=== PATIENT | female | born 1950 | race Caucasian/White ===

== ENCOUNTER 2016-10-28 18:21 | Emergency (ER) | payer OTHER ==
--- NOTE | ~2016-10-28 | CT2 ---
[facility] A Service [facility] RADIOLOGY TEXT RESULTS PATIENT: BETH FLOYD LOCATION: [facility] : 54 UNIT #: [id number] AGE: [address]: Cassidy Sandoval MD SEX: F ORDER DR: [id number] [id number] [facility]. [place], [place] [address] [id number] MR#: [id number] Acc #: [id number] NAME: BETH FLOYD : 1950 SEX: F STUDY DATE/TIME: 10/28/2016 20:01 UNIT: [facility] ROOM: STUDY DESCRIPTION: CT Abd and Pelv W Cont Attending Physician: Cassidy Sandoval M.D. Ordering Physician: Cassidy Sandoval M.D. Primary Care Physician: Negrito Mims M.D. MEDICAL IMAGING REPORT This report is preliminary unless electronic signature is present EXAM CT abdomen and pelvis 10/28/2016 INDICATION Generalized abdominal pain and lower abdominal pain. Nausea and diarrhea for [address] of the abdomen and pelvis with p.o. and IV contrast (100 mL Isovue-370 IV contrast). Coronal and sagittal reconstructions were obtained. This CT exam was performed with one or more of the following radiation dose reduction techniques: automatic exposure control, adjustment of mA and/or kV according to patient size, and iterative reconstruction. COMPARISON None available. FINDINGS There is some mucus plugging in the right lower lobe bronchi. There is some linear atelectasis in the right lung base. The liver enhances normally. Multiple gallstones are identified in the gallbladder. The pancreas, spleen, adrenal glands, and kidneys are within normal limits. There are a few small periportal lymph nodes, however, they are not considered to be pathologically enlarged. No small bowel obstruction. There is fluid throughout the colon consistent with the history of a gastroenteritis. The appendix is not clearly identified and it may be surgically absent. There is no inflammatory changes adjacent to the cecum. The abdominal aorta is normal caliber, however, there is diffuse atherosclerotic disease. [facility] A Service of [facility] RADIOLOGY TEXT RESULTS PATIENT: BETH FLOYD LOCATION: [facility] : 54 UNIT #: [id number] AGE: [address]: Cassidy Sandoval MD SEX: F ORDER DR: PELVIS: No pelvic mass. Bladder is unremarkable. Uterus and ovaries are within normal limits. No acute osseous abnormalities. There is some old right-sided rib fractures. There is multilevel degenerative changes throughout the thoracic and lumbar spine. IMPRESSION 1. Cholelithiasis. 2. Mild mucus plugging in the right lower lobe bronchi. 3. Fluid-filled loops of colon consistent the given history of a gastroenteritis. Dictated by... Kaushik Lombardi M.D. THIS IS AN ELECTRONICALLY VERIFIED REPORT Kaushik Lombardi M.D. at 10/29/2016 12:15 PM LESLY/martha TD: 10/29/2016 10:28 JOB #: [id number] MEDICAL IMAGING REPORT COPY
[~2016-10-28 18:21] MED LIST: ARAVA; DICLOFENAC PO; HUMIRA; METHOTREXATE2.5 MG INJ; PAXIL PO; PERCOCET5/325 PO; VICODIN PO
[2016-10-28 18:37] LABS: URINE SOURCE CLEAN CATCH
[2016-10-28 18:41] LABS: BASOPHIL% 0.4 % (0-2.5); EOSINOPHIL# 1.3 X10e3 (0-0.7); EOSINOPHIL% 9.6 % (0.0-7.0); HEMATOCRIT 39.7 % (35.0-45.0); HEMOGLOBIN 13.3 gm/dL (12.0-16.0); LYMPHOCYTE# 3.3 X10e3 (1.0-3.5); LYMPHOCYTE% 24.7 % (17.0-45.0); MEAN CELL VOLUME 91.6 FL (83-96); MEAN CORPUSCULAR HEMOGLOBIN 30.8 PG (28-34); MEAN CORPUSCULAR HGB CONC 33.6 g/dL (30-36); MEAN PLATELET VOLUME 7.2 FL (6.5-11.5); MONOCYTE# 0.8 X10e3 (0-1.0); MONOCYTE% 5.9 % (3.0-12.0); NEUTROPHIL# 8.1 X10e3 (1.5-7.1); NEUTROPHIL% 59.4 % (40-75); PLATELET COUNT 417 X10e3 (140-420); RED BLOOD COUNT 4.34 X10e (3.90-5.30); RED CELL DISTRIBUTION WIDTH 14.7 % (11.0-15.5); WHITE BLOOD COUNT 13.5 X10e3 (4.0-10.5)
[2016-10-28 18:42] LABS: URINE APPEARANCE CLEAR; URINE BILIRUBIN NEG (NEG); URINE BLOOD NEG (NEG); URINE COLOR YELLOW; URINE GLUCOSE NEG (NEG); URINE KETONE NEG (NEG); URINE LEUKOCYTE ESTERASE 1+ (NEG); URINE NITRATE NEG (NEG); URINE PROTEIN TRACE (NEG); URINE SPECIFIC GRAVITY 1.024 (1.003-1.035); URINE UROBILINOGEN 0.2 MG/DL (NEG)
[2016-10-28 18:44] LABS: URBCS1 AUWI 0-2 /[HPF] (0-2); URINE SQUAMOUS EPITHELIAL CELL OCC /[HPF]
[2016-10-28 18:50] LABS: DIFF IND NO
[2016-10-28 18:52] LABS: U HYALINE CASTS AUWI 0-2 /[LPF]
[2016-10-28 18:53] LABS: CULTURE INDICATED? YES; URINE BACTERIA AUWI 1+ (NEGATIVE)
[2016-10-28 19:10] LABS: ALBUMIN SERUM 3.9 g/dL (3.5-5.0); ALKALINE PHOSPHATASE 67 U/L (32-92); ALT (SGPT) 10 U/L (10-40); AMYLASE 23 U/L (0-46); AST (SGOT) 16 U/L (10-42); BILIRUBIN, DIRECT 0.1 mg/dL (0.0-0.2); BILIRUBIN,INDIRECT 0.5 mg/dL (0.0-0.9); BILIRUBIN,TOTAL 0.6 mg/dL (0.2-2.0); BLOOD UREA NITROGEN 14 mg/dL (9-23); CALCIUM SERUM 10.2 mg/dL (8.4-10.2); CARBON DIOXIDE 26 mmol/L (22-31); CHLORIDE 95 mmol/L (100-111); CREATININE SERUM 0.8 mg/dL (0.6-1.4); GLOM FILT RATE Estimated ABOVE60 mL/min (>60); GLUCOSE FASTING 100 mg/dL (70-110); LIPASE 32 U/L (22-51); PROTEIN TOTAL SERUM 7.9 g/dL (6.0-8.3); SODIUM 132 mmol/L (135-145)
[2016-10-28 19:11] LABS: POTASSIUM 3.1 mmol/L (3.5-5.1)
[2016-11-24] MEDS ORDERED: RESTORIL15 MG PO (06:29)
[2016-11-24] MEDS ORDERED: METOPROLOL SUCC25 MG PO (06:30)
[2016-11-24] MEDS ORDERED: TRIAMTERENE-HC1 EAC1 PO (06:31)
[2016-11-24] MEDS ORDERED: VENLAFAXINE HC150 M1 PO (06:31)
[2016-11-24] MEDS ORDERED: CARAFATE1 GM PO (06:32)
[2016-11-24] MEDS ORDERED: KLOR-CON SPRIN10 MEQ (06:32)
[2016-11-24] MEDS ORDERED: VITAMIN B-1100 M1 PO (06:33)
[2016-11-24] MEDS ORDERED: FOLIC ACID1 MG PO (06:33)
[2016-11-24] MEDS ORDERED: MULTI-DAY VITA1 EACH (06:34)
[2016-11-24] MEDS ORDERED: CIMZIA400 MG/2 M SQ (06:35)
[2016-11-24] MEDS ORDERED: HYDROCODON-ACE1 EAC9 PO (06:52)
[2016-11-27] MEDS ORDERED: COLESTID1 GM PO (09:09)
== END 2016-10-28 22:16 | disposition home or self-care (01) ==
LOC: CED 18:21
PROVIDERS: Emergency Medicine
DX: R19.7 Diarrhea, unspecified (principal)
CPT/HCPCS: 36415; 74177; 80048; 80076; 81003; 82150; 83690; 85025; 87086; 96361; 96374; 99284; J2405; Q9967

== ENCOUNTER → 2016-11-24 | Day surgery (SDC) | payer OTHER ==
[~2016-11-24] MED LIST changes: +CARAFATE1 GM PO; +CIMZIA400 MG/2 M SQ; +COLESTID1 GM PO; +FOLIC ACID1 MG PO; +HYDROCODON-ACE1 EAC9 PO; +KLOR-CON SPRIN10 MEQ; +METOPROLOL SUCC25 MG PO; +MULTI-DAY VITA1 EACH; +RESTORIL15 MG PO; +TRIAMTERENE-HC1 EAC1 PO; +VENLAFAXINE HC150 M1 PO; +VITAMIN B-1100 M1 PO
--- NOTE | ~2016-11-24 | OR ---
Unit #: [id number] #: [id number] Patient: BETH FLOYD [id number] [address] [place], [place] [address] [id number] O MR#: [id number] NAME: BETH FLOYD ROOM: Date of Procedure: 11/24/2016 Admission Date: 11/24/2016 Surgeon: Dejuan Higuera M.D. : 1950 Attending Physician: Dejuan Higuera M.D. Referring Physician: Dejuan Higuera M.D. Primary Care Physician: Negrito Mims M.D. OPERATIVE REPORT PREOPERATIVE DIAGNOSES Diarrhea and weight loss. PROCEDURES PERFORMED Upper gastrointestinal endoscopy and biopsy as well as colonoscopy with biopsies and polypectomy. POSTOPERATIVE DIAGNOSES For upper endoscopy: 1. The patient had moderate prepyloric antral erosive gastritis. 2. There was a distal esophageal mucosal ring, which was felt to be wide open and not requiring dilation. 3. Rest of examination up to third part of duodenum was normal. Biopsies obtained from the antrum for CLOtest. In addition, biopsies also obtained from deep descending duodenal folds to look for any evidence of partial villous atrophy or celiac disease. For colonoscopy: 1. The patient had a single polyp in the proximal sigmoid colon. This was removed using snare polypectomy. It was about 7 mm in size. 2. Mild sigmoid and descending colon diverticulosis. 3. Rest of examination up to cecum was normal. The quality of the prep was excellent. Multiple random colonic biopsies were obtained from throughout the colon to rule out microscopic or collagenous colitis. RECOMMENDATIONS The patient will be started on Colestid 1 g p.o. t.i.d. and Lomotil 2.5 mg on a p.r.n. basis. She will be followed up in the office in 3 months' time along with results of biopsies and will also obtain her labs including metabolic profile, CBC, celiac antibody, and a TSH. SEDATION USED MAC. DESCRIPTION OF PROCEDURE Following detailed explanation of the potential risks and complications of an upper endoscopy and a colonoscopy, namely perforation, bleeding, and complications related to sedation, the patient was brought to GI lab and laid in the left lateral decubitus position. Lubricated tip of the Olympus video upper endoscope was passed through bite block into the proximal esophagus under direct vision. The entire esophageal mucosa was examined. The patient was noted to have distal esophageal mucosal ring. The latter had a classic benign appearance and was felt to be wide open, Unit #: [id number] #: [id number] Patient: BETH FLOYD not requiring dilation. The scope was then advanced into the gastric cavity and the latter was insufflated. Mucosa of the fundus, body, and antrum examined and moderate prepyloric antral erythema and erosions noted indicating antral gastritis. Pylorus was intubated with visualization of the normal duodenal bulb and second and third part of the duodenum. Upon withdrawal and retroflexion, incisura, cardia, and greater curve examined and a biopsy obtained from the antrum for CLOtest. In addition, biopsies also obtained from the deep descending duodenal folds to look for any evidence of partial villous atrophy or celiac disease. The scope was then withdrawn in the distal esophagus. The entire esophageal mucosa was examined all the way up to pharynx. No additional findings noted. The examination table was then turned by 180 degrees and the patient positioned for a colonoscopy. A digital rectal examination was performed, which was normal. Lubricated tip of the Olympus video colonoscope was inserted through the anus and advanced under direct vision. The scope was advanced and passed up to sigmoid into descending colon. Multiple small diverticula were seen in this area. The scope tip was then navigated all the way up to cecum with visualization of the ileocecal valve and the appendiceal orifice. Preparation was excellent with good visualization and photodocumentation was obtained. Last several inches of terminal ileum also visualized after intubation of the ileocecal valve and appeared normal. Successive segments of the colonic mucosa were examined upon withdrawal. The patient has single sessile polyp in the proximal sigmoid colon. This was removed using snare polypectomy. No additional polyps noted. The mucosa throughout appeared normal. Multiple random colonic biopsies obtained from throughout the colon to rule out microscopic or collagenous colitis. Other than the scant diverticula seen in the sigmoid, no additional findings noted. The scope was then withdrawn. The patient returned to recovery area. No hemorrhoids were seen at the anal verge. The patient tolerated the procedure without any postprocedure complications. Dictated by... Ferdinand Vick TD: 11/24/2016 22:31 JOB #: [id number] OPERATIVE REPORT Page 1 of 1 X Dejuan Higuera MD PROCEDURE OPERATIVE NOTE
[2016-11-24 09:02] LABS: BASOPHIL# 0.1 X10e3 (0-0.3); BASOPHIL% 0.8 % (0-2.5); EOSINOPHIL# 0.7 X10e3 (0-0.7); EOSINOPHIL% 9.2 % (0.0-7.0); HEMATOCRIT 34.3 % (35.0-45.0); HEMOGLOBIN 11.2 gm/dL (12.0-16.0); LYMPHOCYTE# 2.5 X10e3 (1.0-3.5); LYMPHOCYTE% 30.3 % (17.0-45.0); MEAN CELL VOLUME 89.9 FL (83-96); MEAN CORPUSCULAR HEMOGLOBIN 29.5 PG (28-34); MEAN CORPUSCULAR HGB CONC 32.8 g/dL (30-36); MEAN PLATELET VOLUME 7.2 FL (6.5-11.5); MONOCYTE# 0.7 X10e3 (0-1.0); NEUTROPHIL# 4.2 X10e3 (1.5-7.1); NEUTROPHIL% 51.7 % (40-75); PLATELET COUNT 303 X10e3 (140-420); RED BLOOD COUNT 3.81 X10e (3.90-5.30); RED CELL DISTRIBUTION WIDTH 14.8 % (11.0-15.5); WHITE BLOOD COUNT 8.1 X10e3 (4.0-10.5)
[2016-11-24 09:03] LABS: DIFF IND NO
[2016-11-24 09:24] LABS: ALBUMIN SERUM 3.6 g/dL (3.5-5.0); BILIRUBIN,TOTAL 0.6 mg/dL (0.2-2.0); CALCIUM SERUM 9.6 mg/dL (8.4-10.2); CREATININE SERUM 0.7 mg/dL (0.6-1.4); GLOM FILT RATE Estimated 91.6 mL/min (>60); PROTEIN TOTAL SERUM 7.1 g/dL (6.0-8.3)
== END | disposition home or self-care (01) ==
LOC: COPS 05:49
PROVIDERS: Internal Medicine Gastroenterology
DX: K29.60 Other gastritis without bleeding (principal); K22.2 Esophageal obstruction; K29.80 Duodenitis without bleeding; R19.7 Diarrhea, unspecified; D12.5 Benign neoplasm of sigmoid colon; K57.30 Diverticulosis of large intestine without perforation or abscess without bleeding; R63.4 Abnormal weight loss
CPT/HCPCS: 80053; 83516; 84443; 85025; 87077; 88305

== ENCOUNTER → 2016-11-27 | Day surgery (SDC) | payer OTHER ==
--- NOTE | ~2016-11-27 | OR ---
Unit #: [id number] #: [id number] Patient: BETH FLOYD [id number] [address] [place], [place] [address] [id number] O MR#: [id number] NAME: BETH FLOYD ROOM: Date of Procedure: 11/27/2016 Admission Date: 11/27/2016 Surgeon: Rhett Samuel M.D. : 1950 Attending Physician: Rhett Samuel M.D. Primary Care Physician: Negrito Mims M.D. OPERATIVE REPORT PREOPERATIVE DIAGNOSES 1. Lumbar disk herniation. 2. Radiculopathy. POSTOPERATIVE DIAGNOSES 1. Lumbar disk herniation. 2. Radiculopathy. PROCEDURE PERFORMED Transforaminal epidural steroid injection with intravenous sedation and fluoroscopic guidance for needle localization. INDICATIONS FOR PROCEDURE The patient is a 66-year-old female with significant left hip and lower extremity pain. She has multilevel multifactorial pathology in her lumbar spine. Plan is based on pain distribution, pathology likely primary issue is the left L3-L4 neural foramina with disk herniation and nerve root contact. Plan is for diagnostic and therapeutic transforaminal injection at left L3-L4 level. If this is not successful, we may contemplate diagnostic and therapeutic left L4-L5 transforaminal injection. DESCRIPTION OF PROCEDURE The patient was placed in the prone position. Standard monitors were applied. 2 mg of Versed were given for sedation and anxiolysis, which were adequate. Vital signs remained stable. Sterile prep and drape then of the lumbar area was performed. The skin then to the left of midline at the L3-L4 level was localized with 1% lidocaine. A long 22-gauge Quincke point spinal needle was then advanced with biplanar fluoroscopic guidance to bring the needle tip to within the edge of the L3-L4 neural foramina. After confirming proper positioning with fluoroscopy and radiographic contrast, 80 mg of Depo-Medrol and 1 mL of 0.25% bupivacaine was deposited. There was some mild reproduction of pain during the injection phase, this was quickly abated. The patient otherwise tolerated the procedure well and was discharged to the recovery room in stable condition. Dictated by... Rhett Samuel M.D. LHP/deirdrel TD: 11/27/2016 23:15 Unit #: [id number] #: [id number] Patient: BETH FLOYD JOB #: [id number] OPERATIVE REPORT Page 1 of 1 X Rhett Samuel MD X PROCEDURE OPERATIVE NOTE
== END | disposition home or self-care (01) ==
LOC: CCSC 08:17
DX: M51.16 Intervertebral disc disorders with radiculopathy, lumbar region (principal)
CPT/HCPCS: J1040; J2250